=== PATIENT | female | born 1935 | race Caucasian/White ===

== ENCOUNTER 2022-09-07 00:46 | Inpatient (IN) | payer MEDICARE, OTHER ==
[~2022-09-07] VITALS: Ht 157.5 cm; Wt 74.8 kg
--- NOTE | 2022-09-07 01:08 | NUR ---
Per granddaughter, unable to recall dosages of medications, needs further follow up.
[2022-09-07] MEDS ORDERED: GLIP5TAB13 PO (01:10)
[2022-09-07] MEDS ORDERED: SITA50TA PO (01:10)
[2022-09-07] MEDS ORDERED: METO-356 PO (01:10)
[2022-09-07] MEDS ORDERED: RIVA20TA PO (01:10)
[2022-09-07] MEDS ORDERED: METF-494 PO (01:10)
[2022-09-07] MEDS ORDERED: QUET25TA PO (01:10)
--- NOTE | 2022-09-07 01:10 | NUR ---
Dr. Casiano at bedside for MSE.
--- NOTE | 2022-09-07 01:15 | NUR ---
Code Stroke called.
--- NOTE | 2022-09-07 01:20 | NUR ---
Harness Placer at bedside.
[2022-09-07] MEDS ORDERED: IV NORMAL SALINE 1000 ML BAG IV ONE (01:30)
--- NOTE | 2022-09-07 01:30 | NUR ---
Pt out of ER for CT, placed on monitor, accompanied by Elidia INFANTE.
--- NOTE | 2022-09-07 01:47 | NUR ---
Pt back to ER from CT.
--- NOTE | 2022-09-07 01:58 | NUR ---
Request for teleneurology made on telemed [employer]
[2022-09-07 02:08] LABS: HEMATOCRIT 39.8 % (31.2-41.9); MEAN CORPUSCULAR HEMOGLOBIN 30.2 uug (24.7-32.8); MEAN CORPUSCULAR VOLUME 89.6 fL (75.5-95.3); PLATELET COUNT (AUTO) 280 K/uL (179-408)
--- NOTE | 2022-09-07 02:10 | NUR ---
Dr. Casiano speaking with teleneurologist.
[2022-09-07 02:24] LABS: BILIRUBIN,TOTAL 0.6 mg/dL (0.2-1.0); CREATININE 0.8 mg/dL (0.6-1.3); TOTAL PROTEIN, SERUM 7.3 g/dL (6.4-8.2)
[2022-09-07 02:25] LABS: POTASSIUM 2.8 mmol/L (3.5-5.1)
[2022-09-07] MEDS: POTASSIUM CHLORIDE 50 ML IV SCH ×8 (03:00→10:45)
[2022-09-07] MEDS ORDERED: POTASSIUM CHLORIDE 200 ML ONE (03:26)
[2022-09-07 03:58] LABS: *BILIRUBIN,URIN NEGATIVE (NEGATIVE); *BLOOD, URINE 2+ (NEGATIVE); *CLARITY,URINE CLOUDY (CLEAR); *COLOR,URINE YELLOW (YELLOW); *KETONES,URINE NEGATIVE (NEGATIVE); *UROBILINOGEN,URINE 0.2 E.U./dl (NORMAL); LEUKOCYTE ESTERASE ,URINE TRACE (NEGATIVE); NITRITE, URINE NEGATIVE (NEGATIVE); PH,URINE 5.5 (5.0-8.0); UGLUCOSE TRACE (NEGATIVE)
[2022-09-07] MEDS ORDERED: MELATONIN 3 MG TABLET PO SCH ×2 (04:30→21:00)
[2022-09-07 05:13] LABS: BACTERIA,URINE MANY /HPF (NONE SEEN); RBC,URINE 0-3 /HPF (0-3); SQUAMOUS EPITHELIAL CELL,UR FEW /HPF (NONE SEEN); WBC,URINE TNTC /HPF (0-3); YEAST,URINE MANY /HPF (NONE SEEN)
--- NOTE | 2022-09-07 05:28 | NUR ---
Dr. Casiano on panel call with Dr. Allyssa HEIN.
[2022-09-07] MEDS ORDERED: DEXTROSE 50% 50 ML DISP.SYRIN IV PRN (05:30)
[2022-09-07] MEDS ORDERED: CEFTRIAXONE 1 G in IV DEXTROSE 5% 50 ML IV SCH (05:30)
[2022-09-07] MEDS ORDERED: ONDANSETRON 4 MG/2 ML VIAL IV PRN (05:30)
[2022-09-07] MEDS ORDERED: hydrALAZINE HCL 20 MG/1 ML VIAL IV PRN (05:30)
[2022-09-07] MEDS ORDERED: MORPHINE SULFATE 2 MG/1 ML DISP.SYRIN IVP PRN (05:30)
[2022-09-07] MEDS ORDERED: CEFTRIAXONE 1 G in IV DEXTROSE 5% 50 ML IV ONE (05:45)
[2022-09-07] MEDS: IV NS 1000 ML 1,000 ML IV SCH ×2 (06:20→11:15)
[2022-09-07] MEDS ORDERED: CEFTRIAXONE /D5W 50ML IVPB **ER PYXIS IV ONE (07:16)
--- NOTE | 2022-09-07 07:27 | NUR ---
Report given to May INFANTE
[2022-09-07] MEDS: BLOOD SUGAR DIAGNOSTIC 1 EACH STRIP VI SCH ×4 (07:30→20:33)
[2022-09-07] MEDS ORDERED: INSULIN REGULAR, HUMAN 300 UNIT/3 ML VIAL ONE (08:00)
--- NOTE | 2022-09-07 08:02 | NUR ---
Per Tim Oliveros, BMP will be ordered for patient to recheck potassium levels and to hold off on the remaining bags of potassium (40 meq total). Bedside swallow evaluation conducted on patient. Patient able to tolerate PO fluid.
[2022-09-07] MEDS: INSULIN REGULAR, HUMAN 300 UNIT/3 ML VIAL SQ PRN ×2 (08:06→17:02)
--- NOTE | 2022-09-07 08:15 | NUR ---
Gave report to ARELIS Zavala.
[2022-09-07 08:23] LABS: CREATININE 0.7 mg/dL (0.6-1.3); POTASSIUM 3.1 mmol/L (3.5-5.1)
--- NOTE | 2022-09-07 08:35 | NUR ---
REPORT RECEIVED FROM NASREEN REYEZ RN.PT WAS DX OF AMS. PT AOX1-2. WHEELCHAIR BOUND. INCONTINENT OF BOTH. TURKISH SPEAKING. PERINEAL REDNESS WAS REPORTED. PARALYSIS OF DEIDRE LOWER LEG. EKG SHOW-AFIB; UA - + YEAST. COVID NEG. HEAD CT-NEG. CODE STOKE WAS ACTIVATED WHILE IN ER. TELEMED CONSULTED. PT IS ON 3L NC SATURATING 98; R WRIST 20G IV PATENT AND INTACT. REGULAR DIET. DR. REYES WILL FOLLOW CARE.
[2022-09-07] MEDS ORDERED: METOPROLOL SUCCINATE XL 25 MG TAB.SR.24H PO SCH (09:00)
--- NOTE | 2022-09-07 09:15 | NUR ---
PT ARRIVED ON THE UNIT. NOTIFIED.
[2022-09-07 09:51] VITALS: BP 131/83
[2022-09-07] MEDS ORDERED: METOPROLOL TARTRATE 25 MG TABLET PO ONE (10:15)
[2022-09-07] MEDS ORDERED: POTASSIUM CHLORIDE 20 MEQ TAB.PRT.SR PO ONE (10:30)
--- NOTE | 2022-09-07 10:45 | NUR ---
NURSING SWALLOW EVAL DONE. PT PASSED. MD NOTIFIED. [facility] WAS ORDERED.
[2022-09-07] MEDS ORDERED: METO25TA6 PO (11:15)
[2022-09-07] MEDS ORDERED: METF-440 PO (11:15)
[2022-09-07] MEDS ORDERED: FURO20TA4 PO (11:15)
[2022-09-07] MEDS ORDERED: SITA100T PO (11:16)
[2022-09-07] MEDS: DOCUSATE SODIUM 100 MG CAPSULE PO SCH ×2 (11:20→17:23)
[2022-09-07 12:00] VITALS: BP 142/72
[2022-09-07] MEDS ORDERED: FLUCONAZOLE 100 MG TABLET PO ONE (13:00)
[2022-09-07] MEDS: ACETAMINOPHEN 325 MG TABLET PO PRN ×2 (13:05→18:56)
[2022-09-07 16:00] VITALS: BP 142/66
[2022-09-07] MEDS ORDERED: MAGNESIUM HYDROXIDE 30 ML LIQUID UDC PO PRN (16:15)
[2022-09-07] MEDS: RIVAROXABAN 10 MG TABLET PO SCH (17:28)
[2022-09-07] MEDS ORDERED: QUETIAPINE FUMARATE 25 MG TABLET PO SCH (18:00)
[2022-09-07] MEDS: REMEDY ESSENTIAL ZINC PASTE 113 GM TOP SCH (20:32)
[2022-09-07] MEDS: INSULIN REGULAR, HUMAN 300 UNITS/3 ML VIAL SQ PRN (20:34)
[2022-09-07 20:52] VITALS: BP 117/62
[2022-09-08] VITALS: BP 132/56
[2022-09-08] MEDS: IV NS 1000 ML 1,000 ML IV SCH (02:11)
[2022-09-08 04:00] VITALS: BP 137/50
[2022-09-08] MEDS: BLOOD SUGAR DIAGNOSTIC 1 EACH STRIP VI SCH ×4 (06:37→21:30)
[2022-09-08 07:06] LABS: HEMATOCRIT 34.6 % (31.2-41.9); MEAN CORPUSCULAR HEMOGLOBIN 30.2 uug (24.7-32.8); MEAN CORPUSCULAR VOLUME 90.6 fL (75.5-95.3); PLATELET COUNT (AUTO) 254 K/uL (179-408)
[2022-09-08 07:23] LABS: THYROID STIMULATING HORMONE 1.888 mIU/mL (0.358-3.740)
[2022-09-08 07:30] LABS: BILIRUBIN,TOTAL 0.6 mg/dL (0.2-1.0); CREATININE 0.7 mg/dL (0.6-1.3); PHOSPHOROUS 2.7 mg/dL (2.5-4.9); POTASSIUM 3.4 mmol/L (3.5-5.1)
--- NOTE | 2022-09-08 08:00 | NUR ---
Aspiration precaution implemented. Pt confused alert to her name. Pt able to make her need known. Frequent turning q 2 hours implemented. Pt able to move her Lower extremities. Noted L CW pacemaker. Pt denies any c/o pain. Tele SNR 1 deg av block. with v pacing. Call light is within reach. Bed alarm on.
[2022-09-08] MEDS: CEFTRIAXONE 1 G in IV DEXTROSE 5% 50 ML IV SCH (08:08)
[2022-09-08] MEDS: DOCUSATE SODIUM 100 MG CAPSULE PO SCH ×2 (08:09→16:26)
[2022-09-08] MEDS: FUROSEMIDE 20 MG TABLET PO SCH (08:10)
[2022-09-08] MEDS: REMEDY ESSENTIAL ZINC PASTE 113 GM TOP SCH ×2 (08:15→21:08)
[2022-09-08] MEDS: METOPROLOL TARTRATE 25 MG TABLET PO SCH (08:15)
[2022-09-08] MEDS ORDERED: POTASSIUM CHLORIDE 20 MEQ TAB.PRT.SR PO ONE (10:15)
[2022-09-08 12:00] VITALS: BP 136/60
[2022-09-08] MEDS: INSULIN REGULAR, HUMAN 300 UNIT/3 ML VIAL SQ PRN ×3 (12:24→21:32)
[2022-09-08] MEDS ORDERED: IOHEXOL 300MG/ML 100 ML INFUS..BTL ONE (12:51)
[2022-09-08] MEDS ORDERED: SWABABLE VALVE TRANSFER SET EA MC ONE (12:51)
[2022-09-08] MEDS ORDERED: IV NORMAL SALINE 250 ML IV ONE (12:51)
[2022-09-08] MEDS ORDERED: IOHEXOL 350 100 ML INFUS..BTL ONE (12:58)
--- NOTE | 2022-09-08 14:00 | NUR ---
Notified Domo that CTA unsuccessful pt was fighting the tech and moving uncontrollably. Notified Domo Pt would need to be premedicated prior to test. New order received and carried out.
[2022-09-08] MEDS ORDERED: POTA10CA43 PO (14:19)
[2022-09-08] MEDS: GLUCERNA SHAKE 237 ML CAN PO SCH ×2 (14:45→16:26)
[2022-09-08 16:00] VITALS: BP 147/57
[2022-09-08] MEDS ORDERED: diphenhydrAMINE 50 MG/1 ML VIAL IV ONE (16:00)
[2022-09-08] MEDS ORDERED: LORAZEPAM 2 MG/1 ML VIAL IV ONE (16:00)
--- NOTE | 2022-09-08 16:00 | NUR ---
Pt pulled out her midline. Dr Gotti here to see patient and talked to family member roseline over the phone. Restart IV on Right hand. #20 gauge.
[2022-09-08] MEDS: RIVAROXABAN 10 MG TABLET PO SCH (17:00)
--- NOTE | 2022-09-08 17:33 | NUR ---
CTA successful premedication effective. Pt awake and cooperative with daughter at bedside.
--- NOTE | 2022-09-08 18:58 | NUR ---
Notified DR Gotti and DR REYES results of CTAs. PT is in no acute distress.
[2022-09-08 20:45] VITALS: BP 106/48
[2022-09-08] MEDS: ATORVASTATIN 40 MG TABLET PO SCH (21:08)
[2022-09-08] MEDS: INSULIN REGULAR, HUMAN 300 UNITS/3 ML VIAL SQ PRN (22:14)
[2022-09-09] MEDS: TEMAZEPAM 7.5 MG CAPSULE PO PRN (00:19)
[2022-09-09 00:46] VITALS: BP 122/62
[2022-09-09] MEDS ORDERED: LORAZEPAM 2 MG/1 ML VIAL IV ONE (01:00)
[2022-09-09 04:58] VITALS: BP 142/79
[2022-09-09] MEDS: BLOOD SUGAR DIAGNOSTIC 1 EACH STRIP VI SCH ×4 (06:33→21:00)
[2022-09-09 07:06] LABS: HEMATOCRIT 36.1 % (31.2-41.9); PLATELET COUNT (AUTO) 254 K/uL (179-408)
[2022-09-09 07:44] LABS: CREATININE 0.7 mg/dL (0.6-1.3); MAGNESIUM 1.3 mg/dL (1.8-2.4); PHOSPHOROUS 3.1 mg/dL (2.5-4.9); POTASSIUM 3.4 mmol/L (3.5-5.1)
--- NOTE | 2022-09-09 08:00 | NUR ---
Pt is in no acute distress. No slurred speech noted. Pt weak on lower extremities. Pt denies any c/o pain. Fall and aspiration precaution implemented. Frequent turning q 2 hrs implemented.
[2022-09-09] MEDS: CEFTRIAXONE 1 G in IV DEXTROSE 5% 50 ML IV SCH (08:18)
[2022-09-09] MEDS: GLUCERNA SHAKE 237 ML CAN PO SCH ×3 (08:19→17:35)
[2022-09-09] MEDS: FUROSEMIDE 20 MG TABLET PO SCH (08:21)
[2022-09-09] MEDS: DOCUSATE SODIUM 100 MG CAPSULE PO SCH (08:21)
[2022-09-09] MEDS: METOPROLOL TARTRATE 25 MG TABLET PO SCH (08:23)
[2022-09-09] MEDS: REMEDY ESSENTIAL ZINC PASTE 113 GM TOP SCH ×2 (08:25→22:06)
[2022-09-09] MEDS: DOCUSATE SODIUM 100 MG/10 ML LIQUID UDC PO SCH ×2 (08:34→17:35)
[2022-09-09] MEDS ORDERED: POTASSIUM CHLORIDE 20 MEQ TAB.PRT.SR PO ONE (10:00)
[2022-09-09] MEDS: MAGNESIUM SULFATE/D5W 100 ML IV SCH ×4 (10:34→15:04)
[2022-09-09 11:58] VITALS: BP 132/77
[2022-09-09] MEDS: INSULIN REGULAR, HUMAN 300 UNIT/3 ML VIAL SQ PRN ×3 (12:36→22:29)
[2022-09-09] MEDS: DEXAMETHASONE SOD PHOSPHATE 4 MG INJ IV SCH ×2 (14:05→20:46)
[2022-09-09 15:55] VITALS: BP 118/79
--- NOTE | 2022-09-09 18:00 | NUR ---
Family at bedside. pt is in no acute distress. IV intact on right hand flushed with minimal resistance.
[2022-09-09 20:00] VITALS: BP 107/55
[2022-09-09] MEDS: ATORVASTATIN 40 MG TABLET PO SCH (22:05)
[2022-09-09] MEDS: ENOXAPARIN SODIUM 80 MG/0.8 ML DISP.SYRIN SQ SCH (22:08)
[2022-09-10] VITALS: BP 120/80
[2022-09-10] MEDS: DEXAMETHASONE SOD PHOSPHATE 4 MG INJ IV SCH ×3 (02:54→21:13)
[2022-09-10] MEDS: TEMAZEPAM 7.5 MG CAPSULE PO PRN ×2 (04:06→21:29)
[2022-09-10] MEDS: BLOOD SUGAR DIAGNOSTIC 1 EACH STRIP VI SCH ×5 (06:54→21:24)
[2022-09-10 07:58] LABS: HEMATOCRIT 39.2 % (31.2-41.9); MEAN CORPUSCULAR HEMOGLOBIN 30.3 uug (24.7-32.8); MEAN CORPUSCULAR VOLUME 90.8 fL (75.5-95.3); PLATELET COUNT (AUTO) 249 K/uL (179-408)
[2022-09-10 08:11] VITALS: BP 127/84
[2022-09-10 08:17] LABS: CREATININE 0.6 mg/dL (0.6-1.3); MAGNESIUM 2.6 mg/dL (1.8-2.4); PHOSPHOROUS 3.4 mg/dL (2.5-4.9); POTASSIUM 4.1 mmol/L (3.5-5.1)
[2022-09-10] MEDS: DOCUSATE SODIUM 100 MG/10 ML LIQUID UDC PO SCH ×2 (08:59→18:06)
[2022-09-10] MEDS: FUROSEMIDE 20 MG TABLET PO SCH (09:00)
[2022-09-10] MEDS: CEFTRIAXONE 1 G in IV DEXTROSE 5% 50 ML IV SCH (09:00)
[2022-09-10] MEDS: REMEDY ESSENTIAL ZINC PASTE 113 GM TOP SCH ×2 (09:00→21:14)
[2022-09-10] MEDS: METOPROLOL TARTRATE 25 MG TABLET PO SCH (09:00)
[2022-09-10] MEDS: GLUCERNA SHAKE 237 ML CAN PO SCH ×3 (09:00→17:00)
[2022-09-10] MEDS: ENOXAPARIN SODIUM 80 MG/0.8 ML DISP.SYRIN SQ SCH ×2 (09:06→21:10)
[2022-09-10 12:00] VITALS: BP 142/45
--- NOTE | 2022-09-10 12:00 | NUR ---
pt was seen by md. family at bedside. md spoke with granddaughter. awaiting for neuro/vascular clearance for discharge.
[2022-09-10] MEDS: INSULIN REGULAR, HUMAN 300 UNIT/3 ML VIAL SQ PRN ×2 (12:29→18:07)
[2022-09-10 16:00] VITALS: BP 113/60
[2022-09-10] MEDS ORDERED: FLUCONAZOLE 200 MG TABLET PO SCH (17:00)
--- NOTE | 2022-09-10 18:30 | NUR ---
pt aox2. no acute distress noted. family at bedside. call light at bedside. no sob noted. afebrile.
[2022-09-10 20:00] VITALS: BP_SYST 112; BP_SYST 154; BP_DIAS 59; BP_DIAS 67
[2022-09-10] MEDS: ATORVASTATIN 40 MG TABLET PO SCH (21:13)
[2022-09-11 00:08] VITALS: BP 130/60
[2022-09-11] MEDS: ACETAMINOPHEN 325 MG TABLET PO PRN (02:23)
[2022-09-11 04:00] VITALS: BP 134/56
--- NOTE | 2022-09-11 06:50 | NUR ---
PATIENT STABLE MORE ALERT TODAY PARANOID AT TIMES THINK EVERYONE IS OUT TO GET HER. IV TO HEP LOCK.
[2022-09-11] MEDS: CEFTRIAXONE 1 G in IV DEXTROSE 5% 50 ML IV SCH (08:15)
[2022-09-11] MEDS: FUROSEMIDE 20 MG TABLET PO SCH (08:16)
[2022-09-11] MEDS: METOPROLOL TARTRATE 25 MG TABLET PO SCH (08:19)
[2022-09-11] MEDS: DEXAMETHASONE SOD PHOSPHATE 4 MG INJ IV SCH (08:19)
[2022-09-11] MEDS: REMEDY ESSENTIAL ZINC PASTE 113 GM TOP SCH (08:20)
[2022-09-11] MEDS: INSULIN REGULAR, HUMAN 300 UNIT/3 ML VIAL SQ PRN ×2 (08:24→12:12)
[2022-09-11] MEDS: ENOXAPARIN SODIUM 80 MG/0.8 ML DISP.SYRIN SQ SCH (08:26)
[2022-09-11] MEDS: GLUCERNA SHAKE 237 ML CAN PO SCH ×2 (08:28→12:16)
[2022-09-11] MEDS: DOCUSATE SODIUM 100 MG/10 ML LIQUID UDC PO SCH (09:00)
[2022-09-11 09:20] LABS: MEAN CORPUSCULAR VOLUME 90.6 fL (75.5-95.3); PLATELET COUNT (AUTO) 313 K/uL (179-408)
[2022-09-11 09:35] LABS: CREATININE 0.9 mg/dL (0.6-1.3); MAGNESIUM 2.2 mg/dL (1.8-2.4); PHOSPHOROUS 3.7 mg/dL (2.5-4.9); POTASSIUM 3.8 mmol/L (3.5-5.1)
[2022-09-11] MEDS ORDERED: DEXA4TAB68 PO (11:27)
[2022-09-11] MEDS ORDERED: ASPI81TA31 PO (11:27)
[2022-09-11] MEDS ORDERED: ATOR40TA PO (11:27)
[2022-09-11] MEDS ORDERED: FLUC200T PO (11:27)
[2022-09-11 12:00] VITALS: BP 128/86
[2022-09-11] MEDS: BLOOD SUGAR DIAGNOSTIC 1 EACH STRIP VI SCH (12:01)
--- NOTE | 2022-09-11 15:14 | NUR ---
PATIENT IS ALERT & ORIENTED X2; PERSON AND PLACE. SPEAKS CROATIAN. VITAL SIGNS WITH NORMAL BASELINE OF PATIENT. PATIENT TOLERATES PO & IV MEDICATIONS WELL. TOLERATES CCHO 60GMS CARBS DIET. BLOOD SUGAR CHECK PERFORMED, COVERED WITH INSULIN SLIDING SCALE ORDERED. NO SIGNS AND SYMPTOMS OF HYPOGLYCEMIA NOTED. FALL PRECAUTIONS OBSERVED, BED LOWEST SETTING AND BED ALARM ON. PER MD ORDER, PATIENT DISCHARGE HOME WITH 24 HOUR CAREGIVER AND FAMILY TO SUPPORT WITH RECOVERY. PRINTED OUT DISCHARGE INSTRUCTIONS ORDERED. BELONGINGS LIST SIGNED AND ITEMS ACCOUNTABLE FOR. IV DISCONTINUED AT 13:52PM. CATHETER TIP INTACT. RN GAVE REPORT TO FABY UREÑA, EMT. RN PROVIDED EDUCATION TO LETHA (GRANDDAUGHTER) FOR DISCHARGE AT 14:48PM. GRANDDAUGHTER VERBALIZED UNDERSTANDING. PATIENT LEFT THE UNIT, IN STABLE CONDITION AT 15:05PM. RN CALLED GRANDDAUGHTER TO NOTIFY ABOUT DEPARTURE.
== END 2022-09-11 15:05 | disposition home or self-care (01) | DRG 68 ==
LOC: ER 00:46 → TELE3 04:13
PROVIDERS: ADMIT Nurse Practitioner Family; ATTEND Registered Nurse
PROC: 05H633Z Insertion of Infusion Device into Left Subclavian Vein, Percutaneous Approach (ICD-10-PCS; principal; 2022-09-07)
PROC: B547ZZA Ultrasonography of Left Subclavian Vein, Guidance (ICD-10-PCS; 2022-09-07)
DX: I65.22 Occlusion and stenosis of left carotid artery (principal); N39.0 Urinary tract infection, site not specified; E87.20 Acidosis, unspecified; G82.20 Paraplegia, unspecified; I27.82 Chronic pulmonary embolism; B37.49 Other urogenital candidiasis; F03.90 Unspecified dementia, unspecified severity, without behavioral disturbance, psychotic disturbance, mood disturbance, and anxiety; E11.65 Type 2 diabetes mellitus with hyperglycemia; Z79.01 Long term (current) use of anticoagulants; Z79.84 Long term (current) use of oral hypoglycemic drugs; E87.6 Hypokalemia; I48.91 Unspecified atrial fibrillation; Z95.0 Presence of cardiac pacemaker; Z20.822 Contact with and (suspected) exposure to COVID-19; D32.9 Benign neoplasm of meninges, unspecified; B96.89 Other specified bacterial agents as the cause of diseases classified elsewhere
CPT/HCPCS: 36415; 70450; 70496; 71045; 83605; 83735; 84100; 84443; 84484; 85025; 85730; 93005; 93307; 97535-GO-CO; A4663; C1758; G0378; J0696; J1100; J1200; J1650; J1815; J2060; J2405; J3475; J3480; J7040; Q9967